=== PATIENT | male | born 1980 | race Caucasian/White ===

== ENCOUNTER 2017-01-31 11:37 | Emergency (ER) | payer BC ==
[~2017-01-31 11:37] MED LIST: BACTRIM DS TAB1 EAC2 PO; NO MEDS; NORCO 10/325 TA1 TAB PO; XARELTO15 M1 PO
[2017-01-31] MEDS ORDERED: NO HOME MEDICATION (14:08)
[2017-01-31] MEDS ORDERED: OCUFLOX5 ML RIGHT EYE (14:22)
== END 2017-01-31 14:37 ==
LOC: EDMED 11:37
PROC: 08C8XZZ Extirpation of Matter from Right Cornea, External Approach (ICD-10-PCS; principal; 2017-01-31)
DX: T15.01XA Foreign body in cornea, right eye, initial encounter (principal); Z86.718 Personal history of other venous thrombosis and embolism; Z23 Encounter for immunization